=== PATIENT | female | born 1975 | race Caucasian/White ===

== ENCOUNTER → 2021-08-03 | Outpatient (CLI) | payer BC, OTHER ==
[~2021-08-03] MED LIST: ACET-716 PO; AZEL1SPR3; CVS2500C PO; EQL50TAB2 PO; FISH1000 PO; GINK1CAP PO; IMIT6INJ SC; INSU100V2; INSULIN PUMP SC; LORT5TAB PO; MAXA10TA14 PO; PROB250C PO; SUMA6INJ25; ZYRT10CA5 PO; ZYRTTAB8 PO
== END ==
LOC: M LABSMTC 09:31
PROVIDERS: ATTEND Anesthesiology
DX: Z01.818 Encounter for other preprocedural examination (principal); Z11.52 Encounter for screening for COVID-19

== ENCOUNTER 2021-08-08 06:12 | Day surgery (SDC) | payer BC ==
[~2021-08-08] VITALS: Ht 167.6 cm; Wt 66.6 kg
[~2021-08-08 06:12] MED LIST changes: +HEPARIN SOD (PORCINE) 5000UNITS/ML 1ML VIAL/SYRINGE SQ ONE; +LIDOCAINE 1% MDV 20ML VIAL SQ PRN; +LR 1,000 ML IV ONE; +NS 1,000 ML IV SCH; +ceFAZolin SOD 2 GM in IV 1 EA IV ONE
[2021-08-08] MEDS ORDERED: SCOPOLAMINE 1MG TRANSDERMAL PATCH TOP ONE (07:10)
[2021-08-08] MEDS ORDERED: LIDOCAINE 1% SDV 30ML VIAL As Ordered ONE (07:17)
[2021-08-08] MEDS ORDERED: BUPIVACAINE HCL 0.25% 30ML VIAL As Ordered ONE (07:17)
[2021-08-08] MEDS ORDERED: MIDAZOLAM INJ 2MG/2ML VIAL (J2250 PER 1MG) As Ordered ONE (07:55)
[2021-08-08] MEDS ORDERED: METOCLOPRAMIDE INJ 10MG/2ML VIAL (J2765 PER 1) As Ordered ONE (07:55)
[2021-08-08] MEDS ORDERED: dexameTHASONE 4 MG/ML 1ML VIAL (J1100 PER 1MG) As Ordered ONE (07:55)
[2021-08-08] MEDS ORDERED: fentaNYL 100 MCG/2 ML INJECTION As Ordered ONE ×2 (07:55→09:00)
[2021-08-08] MEDS ORDERED: LIDOCAINE 2% 100MG/5ML SDV (FOR ANES.) As Ordered ONE (07:55)
[2021-08-08] MEDS ORDERED: DESFLURANE 240 ML INHALANT As Ordered ONE (07:55)
[2021-08-08] MEDS ORDERED: ACETAMINOPHEN 1000MG 100ML IV BTL (OFIRMEV) (J0131 PER 10MG) As Ordered ONE (07:55)
[2021-08-08] MEDS ORDERED: ONDANSETRON 4MG/2ML VIAL As Ordered ONE (07:55)
[2021-08-08] MEDS ORDERED: propofoL 200 MG/20 ML VIAL As Ordered ONE ×2 (07:55→08:16)
[2021-08-08] MEDS ORDERED: SEVOFLURANE INHAL SOLN 250 ML BTL As Ordered ONE (07:56)
[2021-08-08] MEDS ORDERED: PHENYLephrine 500MCG 5ML (100MCG/ML) SYRINGE As Ordered ONE (08:15)
[2021-08-08] MEDS ORDERED: ePHEDrine SULFATE 25 MG/5 ML(5MG/ML) SYRINGE As Ordered ONE (08:15)
[2021-08-08] MEDS ORDERED: LR 1,000 ML IV SCH (10:20)
[2021-08-08] MEDS ORDERED: ONDANSETRON 4MG/2ML VIAL IV PRN (10:20)
[2021-08-08] MEDS ORDERED: fentaNYL 100 MCG/2 ML INJECTION IV PRN (10:20)
[2021-08-08] MEDS ORDERED: PERCOCET 5MG/325MG TAB PO PRN (10:20)
[2021-08-08 10:30] VITALS: BP 116/77
[2021-08-08] MEDS ORDERED: ROXI1TAB2 PO (10:47)
== END 2021-08-08 11:00 | disposition home or self-care (01) ==
LOC: M SDC 06:12 → EDSTATUS 07:30 → M SDC 11:00
PROVIDERS: ATTEND Surgery
DX: N60.21 Fibroadenosis of right breast (principal); N64.4 Mastodynia; E10.9 Type 1 diabetes mellitus without complications; Z79.4 Long term (current) use of insulin; D64.9 Anemia, unspecified; G43.909 Migraine, unspecified, not intractable, without status migrainosus; Z80.0 Family history of malignant neoplasm of digestive organs; Z80.1 Family history of malignant neoplasm of trachea, bronchus and lung; Z80.3 Family history of malignant neoplasm of breast; Z79.899 Other long term (current) drug therapy
CPT/HCPCS: 19120; 36415; 86850; 86900; 86901; 88307; J0131; J0690; J1100; J1644; J2250; J2370; J2405; J2765; J3010